=== PATIENT | female | born 1955 | race Caucasian/White ===

== ENCOUNTER 2017-04-16 08:51 | Day surgery (SDC) | payer MEDICARE, MEDICAID ==
[~2017-04-16] VITALS: Ht 167.6 cm; Wt 58.1 kg
[~2017-04-16 08:51] MED LIST: ALBU18HF INH; ALIR75PE SQ; CHOL10008 PO; CITA40TA PO; FLUT16SP NS; INSU100I SUBQ; INSU100V7 SUBQ; LEVO125T2 PO; LORA0.5T PO; Lactated Ringer's 1,000 ML IV ONE; MONT10TA23 PO; SYMINH INHALATION
[2017-04-16] MEDS ORDERED: fentaNYL-PF 50 mCg/mL 2 mL Inj ONE (08:52)
[2017-04-16] MEDS ORDERED: Propofol 10,000 mCg/mL 20 mL Inj ONE (08:52)
[2017-04-16 09:28] VITALS: BP 99/64; PULSE 77; RESP 16; O2SAT 97
--- NOTE | 2017-04-16 09:52 | PCM.HPANE ---
Patient Data Date of Service: Apr 16, 2017 (0945) Surgeon Admitting Provider: Attending Provider:Colton Stapleton MD Primary Care Physician:Marcelino Mckeon MD Other Provider:Candido Queen Anesthesia Reason for Visit Early Satiety Ht/WT & BMI Height (Feet): 5 Height (Inches): 6 Weight (Kilograms): 58.06 Body Mass Index 20.00 Allergies Coded Allergies: cyclobenzaprine (Verified Allergy, Unknown, UNKNOWN, 03/27/16) Penicillins (Verified Adverse Reaction, Severe, ITCHING, 03/27/16) codeine (Verified Adverse Reaction, Severe, ITCHING, N&V, 03/27/16) Uncoded Allergies: ENVIRONMENTAL (Allergy, Unknown, triggers breathing difficulty, 06/24/15) Past Anesthesia History Anesthesia History: Denies:: Abnormal Airway, Anesthesia Reactions, Difficult Intubation, Fam Anesthesia Reaction, Fam Malignant Hypertherm, Malignant Hyperthermia Diabetes History Hx Diabetes?: Yes Type of Diabetes: Type I Glycemic Control: Insulin Dependent Current Bedside Blood Glucose: 207 MRSA MRSA: No Medications Home Meds Incl Beta Kallie: No Reported Medications Cholecalciferol (Vitamin D3) (Vitamin D3)1,000 Unit Tab.chew1,000 Unit PO DAILY 04/12/17 Albuterol Sulfate (Ventolin HFA Inhaler)200 Puff/18 Gm Inhaler2 Puff INH Q4 PRN For Wheezing #1 INHALER Ref 0 04/12/17 Levothyroxine (Synthroid)125 Mcg Pevhfo114 Mcg PO DAILY Ref 0 04/12/17 Budesonide/Formoterol 160-4.5 mcg Inh (Symbicort 160-4.5 mcg Inh)120 Puff Inhaler2 Puff INHALATION BID #1 INHALER Ref 0 04/12/17 Alirocumab (Praluent Pen)75 Mg/Ml Pen. Mg SQ 04/12/17 Insulin Aspart (NovoLOG U-100 Pen)100 Unit/Ml Insuln.pen5-10 Units SUBQ 04/12/17 Montelukast 10 Mg Nbrkvg41 Mg PO HS Ref 0 04/12/17 Lorazepam 0.5 Mg Tablet0.5 Mg PO TID PRN For Anxiety Ref 0 04/12/17 Insulin Glargine (Lantus U100 Insulin Vial)100 Unit/Ml Vial12 Unit SUBQ BID #1 VIAL Ref 0 04/12/17 Fluticasone Propionate (Fluticasone Propionate Nasal)16 Gm [place].susp2 [place] NS BID #16 GM Ref 0 04/12/17 Citalopram Hydrobromide (Celexa)40 Mg Ykdyur40 Mg PO DAILY Ref 0 04/12/17 Discontinued Reported Medications Ondansetron 8 Mg Tablet8 Mg PO Q8H PRN For Nausea 06/24/15 Insulin Regular, Human (Novolin-R U100 Insulin Vial)100 Unit/1 Ml VialUnknown Dose SQ tid-ac #1 VIAL Ref 0 per sliding scale 06/24/15 Citalopram 40 Mg Rqirqg98 Mg PO DAILY 30 Days Ref 0 06/24/15 Fluticasone Propionate (Fluticasone Propionate Nasal)16 Gm [place].susp2 [place] NS DAILY #16 GM Ref 0 06/24/15 Diclofenac Gel (Voltaren Gel)100 Gm Gel..gram.100 Gm TP QID PRN PRN 12/27/14 Cholecalciferol (Vitamin D3) (Vitamin D)1,000 Unit Capsule1,000 Unit PO DAILY # 1 BOTTLE Ref 0 12/27/14 Tramadol 50 Mg Pxzote48 Mg PO TID PRN For Pain Ref 0 12/27/14 Budesonide/Formoterol 160-4.5 mcg Inh (Symbicort 160-4.5 mcg Inh)1 Puff Inha2 Puff IH BID #1 INH Ref 0 12/27/14 Promethazine Supp 25 Mg Supp.rect25 Mg RC Q8 PRN For Nausea Ref 0 12/27/14 Montelukast 10 Mg Ckvcre33 Mg PO HS 30 Days Ref 0 12/27/14 Levothyroxine (Synthroid)125 Mcg Txpjqi425 Mcg PO DAILY 30 Days Ref 0 04/14/14 Insulin Glargine (Lantus U100 Solostar Insulin Pen)100 Unit/1 Ml Insuln.pen12 Unit SUBQ PM #1 PENINJ Ref 0 04/14/14 Insulin Glargine (Lantus U100 Solostar Insulin Pen)100 Unit/1 Ml Insuln.pen12 Unit SUBQ AM #1 PENINJ Ref 0 04/14/14 Albuterol HFA (Proair HFA)8.5 Gm Hfa.aer.ad1-2 Puffs IH Q4-6H PRN . #1 INHALER 7/29/14 Carisoprodol 350 Mg Sji191 Mg PO QID PRN . 04/13/14 Lorazepam 1 Mg Tablet0.5-1 Mg PO TID PRN For Anxiety or Agitation Ref 0 04/13/14 History History of ENT Problems?: Yes HEENT History: Positive for:: Cataracts Denies:: Abnormal Airway Difficult Intubation Dysphagia Hearing Problem Denture Type: None Teeth Condition: Within Normal Limits Hx of Heart Problems?: No Cardiovascular History: Denies:: AICD Atrial Fibrillation Cardiac Surgery Chest Pain Congestive Heart Failure Edema Heart Murmur Hypertension Irregular Heartbeat Pacemaker Thrombophlebitis Valvular Heart Disease Hx of Respiratory Problem?: Yes Respiratory History: Positive for:: Asthma Denies:: COPD Chest Surgery Cough Dyspnea Emphysema Hemoptysis Oxygen Administration Pneumonia Tuberculosis Hx Neurologic Problems?: Yes Neurological History: Positive for:: Dizziness Seizures ("long time ago, possibly") Denies:: Alzheimer's Disease CVA Dementia Headaches Hx of GI Problems?: Yes Hx of Problems?: No Genitourinary History: Positive for:: Urinary Tract Infection (hx of) Denies:: HX of Hemodialysis Kidney Stones HX of Peritoneal Dialysis: No Female Hx: Positive for:: Problems with Breasts? (r partial mastectomy, bst ca ) Denies:: Currently Endometriosis Pelvic Inflammatory Skin History: Denies:: History Skin Disorders? Pressure Ulcers Hx Musculoskeletal Problems?: No Musculoskeletal History: Positive for:: Back Injury (lower disc comp fx) Musculoskeletal Trauma (lower back - gymnastics injury) Denies:: Fibromyalgia Joint Replacement Hx of Psycho/Social Problems?: Yes Psycho Social History: Positive for:: Anxiety Hx Depression Denies:: Bipolar Disorder Suicide Attempt Hx Surgeries?: Yes (chapis, breast cancer ) Hx Any Other Health Problems?: Yes Other History: Positive for:: Cancer (breast) Endocrine Disease Hospitalization Thyroid Disease History Blood Transfusions: Denies:: Blood Transfusions Hx Diabetes: YesBedside Blood Glucose: 207 Other Pertinent History: DM type I. pt currently working up for having an insulin pump placed Hx Alcohol Use: NoHx Substance Use: Yes (marijuana, occasionally) Smoking Status: Former Smoker Have You Smoked inLast 12 mo: No Stop/Bang Treated for Sleep Apnea?: No Do You Have a CPAP Machine?: No S-Snoring: Do You Snore Loudly: No T-Tired: feel tired, fatigued: No O-Obsered: Observed not breath: No P-Blood Pressure: treated: No B- Body Mass Index > 35 kg/m2: No A- Age over 50: Yes N- Neck Large Circumference: No G- Gender Male: No ANAMIKA Total Score: 1 Risk Assessment Category Category 1A: Patient has history of documented sleep apnea, and HAS NOT received any narcotic, sedative or anesthesia administration during this stay. Category 1B: Patient has history of documented sleep apnea, and HAS received any narcotic , sedative or anesthesia administration during this stay Category 2: Patient has SUSPECTED Obstructive Sleep Apnea, and HAS received any narcotic , sedative or anesthesia administration during this stay. Category 3: Patient has SUSPECTED Obstructive Sleep Apnea and HAS NOT received narcotic, sedative or anesthesia administration during this stay. Category 4: Outpatient in Procedural Areas with known sleep apnea or who screen positive for High Risk via the STOP/BANG questionnaire. Exam Exam Vital Signs Vital Signs Date Time Temp Pulse Resp B/P Pulse Ox O2 Delivery O2 Flow Rate FiO2 04/16/17 09:28 36.2 77 16 99/64 97 Room Air General Appearance: Alert, Oriented X3, Cooperative, No Acute Distress HEENT/AIRWAY: MP 2 Lungs: Clear to Auscultation Heart: Exam Unremarkable Meds/Labs/Diagnostics Admission Meds Current Medications Lactated Ringer's (Lr) 1,000 ml @ 10 mls/hr Q24H ONCE IV Last administered on 04/16/17 09:31; Start 04/16/17 at 06:00; Stop 04/17/17 at 05:59 Bedside Blood Glucose: 207 Plan Impression Patient chart reviewed, patient interviewed and anesthestic plan with risks, benefits, and alternatives discussed, and informed consent obtained. ASA Physical Status: ASA2 Mod Systemic Disease Anesthetic Plan: MAC Bene/Risks/Altern/Consents: Yes HP Complete Prior to Induction: Yes Darwin Mejia MD Apr 16, 2017 09:52
[2017-04-16 10:18] VITALS: BP 93/53; PULSE 88; RESP 16; O2SAT 96
--- NOTE | 2017-04-16 10:46 | ENDO ---
[address] [address] ENDOSCOPY PROCEDURE PATIENT: DORINDA MICHAUD : 1955 MR#: [id number] ADMIT: 04/16/2017 JOB ID: [id number] DATE: 04/16/2017 PRIMARY PROVIDER: Marcelino Mckeon M.D. PROCEDURE: Esophagogastroduodenoscopy with biopsies. INDICATIONS: A 61-year-old female with early satiety, intermittent nausea, vomiting of uncertain etiology. EQUIPMENT: GIF H 180. SEDATION: Monitored anesthesia as provided by Dr. Darwin Mejia. COMPLICATIONS: None identified. PROCEDURAL INFORMATION: After the risks and benefits were explained, written and verbal informed consent was obtained. The patient was brought into the endoscopy suite and placed into the left lateral decubitus position. Sedation was achieved using the above-stated medications with the addition of oxygen via nasal cannula. The scope was introduced into the mouth through the bite block, and advanced to the second portion of the duodenum. The scope was slowly withdrawn to carefully examine the mucosa for any defects or lesions. Retroflexed views were accomplished in the stomach. The stomach was decompressed. The scope removed from the patient who tolerated the procedure well. FINDINGS: 1. Duodenum: There was some scattered erosive features throughout the second portion and these were targeted for biopsy. In the duodenal bulb, there was a small nodule that was biopsied, perhaps 4 mm in size. 2. Stomach: The patient had streaky erythema and an obvious diffuse gastropathy. Biopsy was acquired for exclusion of Helicobacter or other pathology. I did not see any ulcers, mass lesions nor any evidence of outlet obstruction. Retroflexed views of the LES were unremarkable. 3. Esophagus: The squamocolumnar junction correlated with the top of the gastric folds. No acute erosive changes. No strictures. No mass lesions. In the mid to proximal esophagus, there were a few scattered subtle off white adherent plaques that were possibly consistent with rene. These were brushed and submitted for FIDELIA wet prep. ENDOSCOPIC DIAGNOSES: 1. 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 2. Gastroscopy. 3. Duodenal nodule. 4. Erosive duodenopathy. RECOMMENDATIONS: 1. Await histopathology. 2. If Helicobacter is found, it will need to be eradicated with standard triple therapy. 3. Correlate histology with celiac serology. 4. I agree with repeat gastric emptying study. 5. Continue followup in Endocrinology Clinic to optimize diabetes regimen. 6. Followup in GI clinic in the next 1-2 weeks after the gastric emptying study to review the clinical data. 7. The patient is encouraged to call the office tomorrow to learn of the FIDELIA wet prep results. If positive, a 14 day course of fluconazole would be appropriate.
[2017-04-16 11:00] VITALS: BP 114/63; PULSE 73; RESP 16; O2SAT 94
--- NOTE | 2017-04-17 17:17 | PATH ---
SURGICAL PATHOLOGY Attending Physician:Kimberlyn Whitman CASE STATUS: Signed Out PATIENT NAME: DORINDA MICHAUD PID: [id number] : 1955 DATE COLLECTED:04/16/2017 17:40 SPECIMEN: 1: Duodenum, Biopsy 2: Gastric, Biopsy 3: Duodenum, Biopsy CLINICAL HISTORY: 1). DUODENAL BIOPSY 2). GASTRIC BIOPSY (RULE OUT H.PYLORI) 3). DUODENAL BULB NODULE BIOPSY FINAL DIAGNOSIS: 1.DUODENAL BIOPSY: DUODENAL MUCOSA WITH FOCAL VILLOUS BLUNTING. See comment No increased intraepithelial lymphocytes. Negative for active inflammation. Negative for dysplasia and malignancy. 2.GASTRIC BIOPSY: GASTRIC ANTRAL-TYPE MUCOSA WITH CHRONIC GASTRITIS. Negative for neutrophilic inflammation. Negative for Helicobacter pylori microorganisms. Negative for intestinal metaplasia. Negative for dysplasia and malignancy. 3.DUODENAL BULB NODULE, BIOPSY: DUODENAL MUCOSA WITH PROMINENT BENIGN LYMPHOID AGGREGATE. Negative for active inflammation, features of sprue, dysplasia, or malignancy. ICD10 K29.7 NOTE: 1. Histologic sections for part 1 designated duodenal biopsy demonstrate a focal area of villous blunting. No increased intraepithelial lymphocytes are identified. These features are nonspecific. No features diagnostic of Celiac disease are identified. Clinical and serological correlation is recommended. GROSS DESCRIPTION: The specimen is received in three formalin filled containers labeled with the patient's name. 1). The specimen is labeled "duodenal" and consists of 2 portions of tissue which aggregate to 0.3 x 0.3 x 0.2 CM. The specimen is entirely submitted in cassette 1A. 2). The specimen is labeled "gastric" and consists of a 0.1 x 0.1 x 0.1 CM portion of tissue which is entirely submitted in cassette 2A. 3). The specimen is labeled "duodenal bulb nodule" and consists of a 0.2 x 0.2 x 0.2 CM portion of tissue which is entirely submitted in cassette 3A. 04/16/2017DC MICRO DESCRIPTION: See diagnosis. ICD-9 CODES: CPT CODES: 1: 52654 2: 98725 3: 21649 Electronically Signed Out Hubert Mcclelland MD [facility] [address], [place] [address] Technical component performed at [facility], [facility] [address], [place], [address]
== END 2017-04-16 23:59 | disposition home or self-care (01) ==
LOC: END 08:51
PROVIDERS: ATTEND Internal Medicine Gastroenterology
DX: K29.50 Unspecified chronic gastritis without bleeding (principal); K31.9 Disease of stomach and duodenum, unspecified; B37.81 Candidal esophagitis; F32.9 Major depressive disorder, single episode, unspecified; F41.9 Anxiety disorder, unspecified; E03.9 Hypothyroidism, unspecified; E10.9 Type 1 diabetes mellitus without complications; J45.40 Moderate persistent asthma, uncomplicated; Z79.4 Long term (current) use of insulin; Z79.51 Long term (current) use of inhaled steroids
CPT/HCPCS: 43239; 87220; J3010; J7120